=== PATIENT | male | born 2000 | race Caucasian/White ===

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

== ENCOUNTER 2021-10-30 19:37 | Emergency (ER) | payer OTHER ==
[~2021-10-30] VITALS: Ht 175.3 cm; Wt 76.7 kg
== END 2021-10-30 23:25 | disposition home or self-care (01) ==
LOC: ER 19:37
DX: S93.402A Sprain of unspecified ligament of left ankle, initial encounter (principal); X37.1XXA Tornado, initial encounter; Y93.79 Activity, other specified sports and athletics; Y92.9 Unspecified place or not applicable